=== PATIENT | male | born 1985 | race American Indian/Alaskan Native ===

== ENCOUNTER 2018-01-26 01:35 | Emergency (ER) | payer MEDICAID ==
[2018-01-26 02:03] VITALS: RESP 18; TEMP 97.7; BMI 33.0
[2018-01-26] MEDS ORDERED: Oxycodone/Acetaminophen 5/325 mg Tab PO STA (02:18)
--- NOTE | 2018-01-26 02:19 | ED PDOC ---
Arrival/HPI - General Chief Complaint: Headache Time Seen by Provider: 01/26/18 02:00 Historian: Patient - History of Present Illness Narrative History of Present Illness (Text): 01/26/18 02:15 Nusrat Westbrook is a 32 year old male, whose past medical history includes chronic headaches, who presents to the Emergency department complaining of intermittent frontal headaches for the past few days. Patient states headache is similar in quality to previous episodes but was advised to present to the Emergency department by his PMD if symptoms persisted. Patient states he took Tylenol at home with minimal relief. Patient denies any back pain, neck pain, dizziness, focal neurological deficits, fever, chills, vomiting, or any other complaints. Symptom Onset: Gradual Symptom Course: Unchanged, Intermittent Activities at Onset: Light Context: Home Past Medical History - Provider Review Nursing Documentation Reviewed: Yes - Infectious Disease Hx of Infectious Diseases: None - Cardiac Hx Hypertension: Yes - Gastrointestinal Hx Gastroesophageal Reflux: Yes - Psychiatric Hx Substance Use: No - Surgical History Hx Orthopedic Surgery: Yes (orthoscopic right knee sx) - Anesthesia Hx Anesthesia: Yes Hx Anesthesia Reactions: No Hx Malignant Hyperthermia: No Family/Social History - Physician Review Nursing Documentation Reviewed: Yes Family/Social History: Unknown Family HX Smoking Status: Never Smoked Hx Alcohol Use: Yes Frequency of alcohol use: Socially Hx Substance Use: No Allergies/Home Meds Allergies/Adverse Reactions: Allergies No Known Allergies Allergy (Verified 01/26/18 02:08) Home Medications: Home Meds Medication Instructions Recorded Confirmed Cyclobenzaprine [Flexeril] 1 tab PO TID 01/26/18 01/26/18 Levocetirizine Dihydrochloride 1 tab PO HS 01/26/18 01/26/18 [Xyzal] Montelukast Sodium [Singulair] 1 tab PO DAILY 01/26/18 01/26/18 Omeprazole Magnesium [Prilosec Otc] 40 mg PO DAILY 01/26/18 01/26/18 Review of Systems - Physician Review All systems were reviewed & negative as marked: Yes - Review of Systems Constitutional: Normal. absent: Fevers Eyes: Normal ENT: Normal Respiratory: Normal. absent: SOB, Cough Cardiovascular: Normal. absent: Chest Pain Gastrointestinal: Normal. absent: Abdominal Pain, Diarrhea, Nausea, Vomiting Genitourinary Male: Normal. absent: Dysuria, Frequency, Hematuria, Urinary Output Changes Musculoskeletal: Normal. absent: Back Pain, Neck Pain Skin: Normal. absent: Rash Neurological: Headache. absent: Dizziness Endocrine: Normal Hemo/Lymphatic: Normal Psychiatric: Normal Physical Exam Vital Signs Reviewed: Yes Vital Signs Temp Pulse Resp BP Pulse Ox 01/26/18 02:01 97.7 F 68 18 110/72 96 Temperature: Afebrile Blood Pressure: Normal Pulse: Regular Respiratory Rate: Normal Appearance: Positive for: Well-Appearing, Non-Toxic, Comfortable Pain Distress: None Mental Status: Positive for: Alert and Oriented X 3 - Systems Exam Head: Present: Atraumatic, Normocephalic Pupils: Present: PERRL Extroacular Muscles: Present: EOMI Conjunctiva: Present: Normal Ears: Present: Normal, NORMAL TM, Normal Canal. No: Erythema, TM Bulging, Fluid , TM Perf Mouth: Present: Moist Mucous Membranes Pharnyx: Present: Normal. No: ERYTHEMA, EXUDATE, TONSILS ENLARGED, Peritonsilar Swelling, Uvular Deviation, Muffled/Hoarse Voice, Strider, Soft Palate/Uvular Edema Nose (External): Present: Atraumatic Nose (Internal): Present: Normal Inspection Neck: Present: Normal Range of Motion. No: Meningeal Signs, MIDLINE TENDERNESS , Paraspinal Tenderness Respiratory/Chest: Present: Clear to Auscultation, Good Air Exchange. No: Respiratory Distress, Accessory Muscle Use Cardiovascular: Present: Regular Rate and Rhythm, Normal S1, S2. No: Murmurs Abdomen: No: Tenderness, Distention, Peritoneal Signs Back: Present: Normal Inspection. No: CVA Tenderness, Midline Tenderness, Paraspinal Tenderness Upper Extremity: Present: Normal Inspection. No: Cyanosis, Edema Lower Extremity: Present: Normal Inspection. No: Edema Neurological: Present: GCS=15, CN II-XII Intact, Speech Normal, Motor Func Grossly Intact, Normal Sensory Function, Normal Cerebellar Funct, Gait Normal, Memory Normal Skin: Present: Warm, Dry, Normal Color. No: Rashes Psychiatric: Present: Alert, Oriented x 3, Normal Insight, Normal Concentration Medical Decision Making ED Course and Treatment: 01/26/18 02:15 Impression: 32 year old male complaining of intermittent headaches for the past few days. Differential Diagnosis included but are not limited to: migraine vs. tension headache Plan: -- CT Head w/o contrast -- Percocet -- Reassess and disposition Progress Notes: 01/26/18 03:44 CT Head shows: Brain: Unremarkable. No hemorrhage. No significant white matter disease. No edema. Ventricles: Unremarkable. No ventriculomegaly. Bones/joints: Unremarkable. No acute fracture. Soft tissues: Unremarkable. Sinuses: Left sphenoid sinus mucous retention cyst and/or polyp. Right maxillary sinus mucus retention cyst and/or polyp. Bilateral middle turbinate yana bullosa. Right mid ethmoid air cell mucous retention cyst and/or polyp. Mastoid air cells: Unremarkable. No mastoid effusion. IMPRESSION: No evidence of an acute intracranial hemorrhage, midline shift or mass effect is identified. 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 No Sleep Is patient sleeping during reassessment? No Presence of Pain Presence of Pain Yes Pain Scale Used Pain Scale Used Numeric Location Pain Location Body Site Leg - Scribe Statement The provider has reviewed the documentation as recorded by the Bj Haney Provider Scribe Attestation: All medical record entries made by the Scribmahamed were at my direction and personally dictated by me. I have reviewed the chart and agree that the record accurately reflects my personal performance of the history, physical exam, medical decision making, and the department course for this patient. I have also personally directed, reviewed, and agree with the discharge instructions and disposition. Disposition/Present on Arrival - Present on Arrival Any Indicators Present on Arrival: No History of DVT/PE: No History of Uncontrolled Diabetes: No Urinary Catheter: No History of Decub. Ulcer: No History Surgical Site Infection Following: None - Disposition Have Diagnosis and Disposition been Completed?: Yes Diagnosis: Migraine headache Disposition: HOME/ ROUTINE Disposition Time: 04:37 Patient Plan: Discharge Condition: GOOD Discharge Instructions (ExitCare): Migraine Headache (DC) Additional Instructions: Take meds as prescribed/follow up with your doctor this week Prescriptions: Acetaminophen/Butalbital/Caf [Fioricet] 1 tab PO Q6 PRN #14 tab PRN Reason: Headache Forms: [facility] ([employer])
--- NOTE | 2018-01-26 03:34 | CT ---
EXAM: CT Head Without Intravenous Contrast CLINICAL HISTORY: 32 years old, male; Pain; Headache; Migraine; Aura effect not specified TECHNIQUE: Axial computed tomography images of the head/brain without intravenous contrast. All CT scans at this facility use one or more dose reduction techniques, viz.: automated exposure control; ma/kV adjustment per patient size (including targeted exams where dose is matched to indication; i.e. head); or iterative reconstruction technique. 261 images are submitted. Axial and coronal reconstruction images are submitted. COMPARISON: No relevant prior studies available. FINDINGS: Brain: Unremarkable. No hemorrhage. No significant white matter disease. No edema. Ventricles: Unremarkable. No ventriculomegaly. Bones/joints: Unremarkable. No acute fracture. Soft tissues: Unremarkable. Sinuses: Left sphenoid sinus mucous retention cyst and/or polyp. Right maxillary sinus mucus retention cyst and/or polyp. Bilateral middle turbinate yana bullosa. Right mid ethmoid air cell mucous retention cyst and/or polyp. Mastoid air cells: Unremarkable. No mastoid effusion. IMPRESSION: No evidence of an acute intracranial hemorrhage, midline shift or mass effect is identified.
[2018-01-26 06:22] VITALS: BP 115/70; PULSE 70; O2SAT 98
== END 2018-01-26 04:59 | disposition home or self-care (01) ==
LOC: ED 01:35
DX: G43.909 Migraine, unspecified, not intractable, without status migrainosus (principal); I10 Essential (primary) hypertension